=== PATIENT | female | born 1990 | race Caucasian/White ===

== ENCOUNTER 2023-02-13 02:49 | Emergency (ER) | payer SELFPAY ==
[~2023-02-13] VITALS: Ht 170.2 cm; Wt 108.9 kg
[2023-02-13 02:52] VITALS: BP 131/90
--- NOTE | 2023-02-13 02:56 | NUR ---
OFFLOADED TO DIANN
[2023-02-13 03:30] VITALS: BP 131/90
--- NOTE | 2023-02-13 04:08 | NUR ---
DPatient discharged with v/s stable. Written and verbal after care instructions given and explained. Patient verbalized understanding. Ambulatory with steady gait. All questions addressed prior to discharge. Advised to follow up with PMD. PT LEFT WITH BELONGINGS.
--- NOTE | 2023-02-13 07:00 | NUR ---
DETENTION DEPUTY WAS ALERTED BY REGISTRATION STAFF THAT PT. WAS STILL IN ER LOBBY AND NOT LEAVING HOSPITAL. THIS RN MET WITH PT. AND SHE STATES THAT SHE DOES NOT WANT TO LEAVE YET. PT. ORDER A HOT BREAKFAST TRAY AND WILL RE-EVAL LATER. PT. IS CALM, PRESSURED SPEECH, WITH HYPERVERBAL SPEECH PATTERN. WILL CONT. TO MONITOR
--- NOTE | 2023-02-13 08:30 | NUR ---
PT. STILL IN LOBBY. PT. GIVEN HOT BREAKFAST TRAY. PT. IS CALM, COOPERATIVE. SPEECH PATTERN HAS NOT CHANGED. PT. DENIES SUICIDAL OR HOMICIDAL IDEATION. PT. IS CALM AND COOPERATIVE. WILL CONT. TO MONITOR. PT. WITH NO ACUTE DISTRESS.
--- NOTE | 2023-02-13 09:30 | NUR ---
PT. FINISHED BREAKFAST AND WAS ASKED TO LEAVE ER AFTER D/C. PT. STILL REFUSES TO LEAVE. HOSPITAL SECURITY WAS CALLED FOR ASSITANCE AND PT. MONITORING. PT. STILL DENIES ANY SUICIDAL OR HOMICIDAL IDEATION.
--- NOTE | 2023-02-13 10:15 | NUR ---
PT. REFUSED TO LEAVE, PER [facility], [facility] [employer] WAS CALLED TO REMOVE PT. FROM HOSPITAL PROPERTY. PT. STILL REFUSING TO LEAVE HOSPITAL PREMESIS. PT. STILL DENIES ANY SUICIDAL OR HOMICIDAL IDEATION. PT. STILL SHOWING FLIGHT OF IDEAS, PRESSURED SPEECH, AND MAKING DELUSIONAL NON-NONSENSICAL STATEMENTS
--- NOTE | 2023-02-13 11:55 | NUR ---
[facility] [employer] AT SCENE IN HOSPITAL NOW. PT. STILL DENIES ANY SUICIDAL OR HOMICIDAL IDEATION. PT. STILL SHOWING FLIGHT OF IDEAS, PRESSURED SPEECH, AND MAKING DELUSIONAL NON-NONSENSICAL STATEMENTS. PT. IS CALM AND POLICE TALKING TO PT.
--- NOTE | 2023-02-13 13:30 | NUR ---
PT. LEFT THE HOSPITAL PROPERTY.
== END 2023-02-13 04:08 | disposition home or self-care (01) ==
LOC: MED 02:49
DX: O26.891 Other specified pregnancy related conditions, first trimester (principal); F19.10 Other psychoactive substance abuse, uncomplicated; F20.9 Schizophrenia, unspecified; Z3A.01 Less than 8 weeks gestation of pregnancy
CPT/HCPCS: 99283